=== PATIENT | female | born 1965 | race American Indian/Alaskan Native ===

== ENCOUNTER 2018-01-04 15:20 | Inpatient (IN) | payer OTHER ==
[2018-01-04 15:24] VITALS: BMI 28.8
--- NOTE | 2018-01-04 16:39 | CP.PCM.HP ---
History of Present Illness - History of Present Illness History of Present Illness: This is a 52 year old female with pmh of Type 2 diabetes mellitus for 7 years with history of diabetic neuropathy, history of TIAs, Cushing palsy, who initially presented to [facility] with the complaint of dizziness/ presyncope spells for the week prior to admission there. During her admission she was found to have chronic inflammatory demyelinating neuropathy, Faria- Johnston variant. She recieved IVIG infusions during her stay. In addition to this , she was noted to have decreased Hg of 9.8 and was worked up by Dr. Logan from GI. She had negative EGD with no bleed found. She is now being admitted to [facility] for further rehabilitation. Patient denies chest pain, shortness of breath, fevers, chills, diarrhea. All of the patient's and/or family's questions were answered at the bedside. PMD: Dr. Acuna Neurologist: Dr. Malcom Logan- [employer] Surrogate decision maker: Lamont Pina, spouse, Present on Admission - Present on Admission Any Indicators Present on Admission: Yes History of DVT/PE: No History of Uncontrolled Diabetes: Yes Review of Systems - Review of Systems Review of Systems: A 12 point review of systems was conducted and found to be negative other than what was mentioned in HPI. Past Patient History - Infectious Disease Hx of Infectious Diseases: None - Past Medical History & Family History Past Medical History?: Yes Past Family History: Reviewed and not pertinent - Past Social History Smoking Status: Never Smoked Alcohol: None Drugs: Denies - CARDIAC Hx Cardiac Disorders: Yes - PULMONARY Hx Respiratory Disorders: No - NEUROLOGICAL Hx Neurological Disorder: Yes Hx Dizziness: Yes Hx Vertigo: Yes Other/Comment: BELLS PALSY, WAS TOLD TO HAVE [place] OCTOBER OF LAST YEAR AFTER MRI WAS DONE BY DR DOVER - [place] Hx HEENT Problems: Yes Other/Comment: BLURRED VISION,WEAR READING GLASSES - RENAL Hx Chronic Kidney Disease: Yes Hx Kidney Stones: Yes - ENDOCRINE/METABOLIC Hx Diabetes Mellitus Type 2: Yes (ON INSULIN) - HEMATOLOGICAL/ONCOLOGICAL Hx Blood Disorders: No - INTEGUMENTARY Hx Dermatological Problems: No - MUSCULOSKELETAL/RHEUMATOLOGICAL Hx Falls: No - GASTROINTESTINAL Hx Gastrointestinal Disorders: Yes Hx Constipation: Yes - GENITOURINARY/GYNECOLOGICAL Hx Genitourinary Disorders: No - PSYCHIATRIC Hx Substance Use: No - SURGICAL HISTORY Hx Surgeries: Yes (Tubal ligation.) Hx Tubal Ligation: Yes - ANESTHESIA Hx Anesthesia: Yes Hx Anesthesia Reactions: No Meds Allergies/Adverse Reactions: Allergies Allergy/AdvReac Type Severity Reaction Status Date / Time No Known Allergies Allergy Verified 01/04/18 15:24 Physical Exam - Additional Findings Additional findings: Physical exam: Constitutional- cooperative, awake, alert Head- NCAT, PERRL Eye- PERRL, EOMI ENT- normal exam, MMM. Neck- normal inspection, supple, no JVD Respiratory- CTAB, no wheezes rales rhonchi Cardiovascular- RRR, +S1, +S2 no MRG GI/Abdominal- normal bowel sounds, soft, no mass, no hsm Skin- warm, dry Extremities Exam- Limited ROM right upper extremity. normal capillary refill, normal inspection Neurological Exam- alert, awake, oriented Psych- normal mood, normal affect Assessment & Plan - Assessment and Plan (Free Text) Plan: This is a 52 year old female with pmh of Type 2 diabetes mellitus for 7 years with history of diabetic neuropathy, history of TIAs, Cushing palsy, who initially presented to [facility] with the complaint of dizziness/ presyncope spells for the week prior to admission there. During her admission she was found to have chronic inflammatory demyelinating neuropathy, Faria- Johnston variant. She recieved IVIG infusions during her stay. In addition to this , she was noted to have decreased Hg of 9.8 and was worked up by Dr. Logan from GI. She had negative EGD with no bleed found. She is now being admitted to [facility] for further rehabilitation. Patient denies chest pain, shortness of breath, fevers, chills, diarrhea. All of the patient's and/or family's questions were answered at the bedside. 1) Chronic Inflammatory Demyelinating neuropathy, Faria-Johnston variant - Admit to acute rehab - PT/OT - Physiatry consultation with Dr. Shannon - Received 5 days of IVIG at [facility]. Plan for more infusions of IVIG to be arranged upon discharge from rehab, will be arranged by Dr. Dover. - Pedro for neuropathic pain 2) Uncontrolled Type 2 DM - Levemir 15 units SC HS - Lispro sliding scale with Accucheks AC+HS - Low carbohydrate diet - May need to titrate up Levemir if still uncontrolled, will continue to monitor - ACEI for renal protection 3) History of TIA - Statin - Plavix 4) Anemia - No evidence of GI bleed after workup/EGD with Dr. Logan - Monitor CBC 5) Right shoulder cuff tear hx - Continue Ultram PRN - Will f/u with her orthopedic surgeon as outpatient - PT 6) DVT prophylaxis - Will hold off on anticoagulation due to anemia - SCDs
[2018-01-04] MEDS ORDERED: Insulin Lispro (humaLOG) 100 Units/ml Inj SC SCH (17:00)
[2018-01-04] MEDS: Insulin Detemir 100 Units/ml Inj SC SCH (22:00)
[2018-01-04] MEDS: Insulin Lispro (humaLOG) 100 Units/ml Inj SC SCH (22:01)
[2018-01-05 06:55] LABS: MEAN CELL VOLUME 79.9 fl (81.0-99.0); MEAN CORPUSCULAR HEMOGLOBIN 25.4 pg (27.0-31.0); MEAN CORPUSCULAR HGB CONC 31.7 g/dL (33.0-37.0); RBC 3.96 Mil/uL (3.80-5.20); RED CELL DISTRIBUTION WIDTH 12.7 % (11.5-14.5); WHITE BLOOD COUNT 3.2 K/uL (4.8-10.8)
[2018-01-05 07:22] LABS: BLOOD UREA NITROGEN 15 mg/dl (7-17); CALCIUM 9.2 mg/dL (8.4-10.2); GFR AFRICAN-AMERICAN > 60; GFR NON-AFRICAN AMERICAN > 60
[2018-01-05] MEDS: Insulin Lispro (humaLOG) 100 Units/ml Inj SC SCH ×4 (07:22→21:57)
[2018-01-05] MEDS ORDERED: Enoxaparin 40 mg Syringe SC SCH (09:00)
--- NOTE | 2018-01-05 17:32 | PCM.OPOC ---
Physiatry Overall Plan of Care - Overall Plan of Care Estimated Length of Stay in Weeks: 2 Rehab Impairment: Mobility, Gait, Balance, Coordination Etiologic Diagnosis: Other (CIDP) Rehab/Medical Prognosis: Good - Anticipated Interventions Physical Therapy:: Yes Occupational Therapy:: Yes Speech Therapy:: No Recreational Therapy:: Yes - Therapy Goals Bed Mobility: Supervision Ambulation: Supervision Functional Positional Changes:: Supervision - Discharge Plan Identification of Barriers to Discharge: Home Situation Discharge Destination: Home
--- NOTE | 2018-01-05 17:34 | CP.PCM.CON ---
History of Present Illness - History of Present Illness History of Present Illness: Dr Shannon PMR consultation on Haleigh Pina, born 1965 who has been admitted to [facility] for acute inpatient rehabilitation following an admission at [facility] with weakness and diagnosed with CIDP and put on Ig IGg. There is improved neurological function and strength. Significant stairs at home. The case is complicated by at least a year of significant vertigo and nausea. She is followed by Dr Dover for this issue as well Review of Systems - Constitutional Constitutional: absent: Anorexia, Chills - EENT Eyes: absent: Blurred Vision, Other Visual Disturbances Ears: absent: Decreased Hearing Nose/Mouth/Throat: absent: Nasal Congestion - Cardiovascular Cardiovascular: absent: Chest Pain - Respiratory Respiratory: absent: Dyspnea - Gastrointestinal Gastrointestinal: absent: Constipation - Musculoskeletal Musculoskeletal: absent: Back Pain - Neurological Neurological: Numbness, Vertigo (long standing issue). absent: Abnormal Hearing , Abnormal Movements - Psychiatric Psychiatric: absent: Anxiety Past Patient History - Infectious Disease Hx of Infectious Diseases: None - Past Medical History & Family History Past Medical History?: Yes Past Family History: Reviewed and not pertinent - Past Social History Smoking Status: Never Smoked Alcohol: None Drugs: Denies Home Situation {Lives}: With Family (at least 16 steps) - CARDIAC Hx Cardiac Disorders: Yes - PULMONARY Hx Respiratory Disorders: No - NEUROLOGICAL Hx Neurological Disorder: Yes Hx Dizziness: Yes Hx Vertigo: Yes Other/Comment: BELLS PALSY, WAS TOLD TO HAVE MIN[place]KE OCTOBER OF LAST YEAR AFTER MRI WAS DONE BY DR DOVER - HEENT Hx HEENT Problems: Yes Other/Comment: BLURRED VISION,WEAR READING GLASSES - RENAL Hx Renal Failure: Yes (CKD) - ENDOCRINE/METABOLIC Hx Diabetes Mellitus Type 2: Yes (ON INSULIN) - HEMATOLOGICAL/ONCOLOGICAL Hx Blood Disorders: No - INTEGUMENTARY Hx Dermatological Problems: No - MUSCULOSKELETAL/RHEUMATOLOGICAL Hx Falls: No - GASTROINTESTINAL Hx Gastrointestinal Disorders: Yes Hx Constipation: Yes - GENITOURINARY/GYNECOLOGICAL Hx Genitourinary Disorders: No - PSYCHIATRIC Hx Substance Use: No - SURGICAL HISTORY Hx Surgeries: Yes (Tubal ligation.) Hx Tubal Ligation: Yes - ANESTHESIA Hx Anesthesia: Yes Hx Anesthesia Reactions: No Meds Allergies/Adverse Reactions: Allergies Allergy/AdvReac Type Severity Reaction Status Date / Time No Known Allergies Allergy Verified 01/04/18 15:24 - Medications Medications: Current Medications Atorvastatin Calcium (Lipitor) 20 mg PO [facility] Last Admin: 01/04/18 22:00 Dose: 20 mg Clopidogrel Bisulfate (Plavix) 75 mg PO DAILY [facility] Last Admin: 01/05/18 08:34 Dose: 75 mg Docusate Sodium (Colace) 100 mg PO BID [facility] Last Admin: 01/05/18 08:33 Dose: 100 mg Famotidine (Pepcid) 40 mg PO DAILY [facility] Last Admin: 01/05/18 08:34 Dose: 40 mg Insulin Detemir (Levemir) 15 units SC [facility] Last Admin: 01/04/18 22:00 Dose: 15 units Insulin Human Lispro (Humalog) 0 units SC [facility] PRN Reason: Protocol Last Admin: 01/05/18 12:27 Dose: 3 units Lisinopril (Zestril) 2.5 mg PO DAILY [facility] Last Admin: 01/05/18 08:34 Dose: 2.5 mg Meclizine HCl (Antivert) 25 mg PO TID PRN PRN Reason: Dizziness Ondansetron HCl (Zofran Odt) 4 mg PO Q8H PRN PRN Reason: Nausea/Vomiting Last Admin: 01/05/18 07:23 Dose: 4 mg Pregabalin (Lyrica) 100 mg PO BID [facility] Last Admin: 01/05/18 08:32 Dose: 100 mg Tramadol HCl (Ultram) 50 mg PO TID PRN PRN Reason: pain 1-7 Last Admin: 01/05/18 01:16 Dose: 50 mg Physical Exam - Constitutional Appears: Well, Non-toxic, No Acute Distress - Head Exam Head Exam: ATRAUMATIC, NORMAL INSPECTION, NORMOCEPHALIC - Eye Exam Eye Exam: EOMI - ENT Exam ENT Exam: Mucous Membranes Moist - Respiratory Exam Respiratory Exam: NORMAL BREATHING PATTERN - Cardiovascular Exam Cardiovascular Exam: REGULAR RHYTHM - GI/Abdominal Exam GI & Abdominal Exam: absent: Distended - Extremities Exam Extremities exam: Positive for: full ROM. Negative for: calf tenderness, pedal edema - Neurological Exam Neurological exam: Alert, CN II-XII Intact, Oriented x3 - Psychiatric Exam Psychiatric exam: Normal Affect, Normal Mood - Skin Skin Exam: Warm Results - Vital Signs Recent Vital Signs: Last Vital Signs Temp 97.9 F 01/05/18 07:50 Pulse 73 01/05/18 17:04 Resp 18 01/05/18 07:50 BP 123/72 01/05/18 10:35 Pulse Ox 98 01/05/18 17:04 - Labs Result Diagrams: 01/05/18 05:14 01/05/18 05:14 Labs: Laboratory Results - last 24 hr 01/04/18 01/04/18 01/05/18 16:14 20:50 05:14 WBC 3.2 L RBC 3.96 Hgb 10.0 L Hct 31.6 L MCV 79.9 L MCH 25.4 L MCHC 31.7 L RDW 12.7 Plt Count 168 Sodium Potassium Chloride Carbon Dioxide Anion Gap BUN Creatinine Est GFR ( Amer) Est GFR (Non-Af Amer) POC Glucose (mg/dL) 291 H 260 H Random Glucose Calcium 01/05/18 05:14 WBC RBC Hgb Hct MCV MCH MCHC RDW Plt Count Sodium 138 Potassium 4.1 Chloride 100 Carbon Dioxide 31 H Anion Gap 11 BUN 15 Creatinine 0.5 L Est GFR ( Amer) > 60 Est GFR (Non-Af Amer) > 60 POC Glucose (mg/dL) Random Glucose 250 H Calcium 9.2 Assessment & Plan - Assessment and Plan (Free Text) Assessment: PT/OT to continue to help increase functional independence Team conference for d/c planning Pain: controlled Vascular: no evidence of DVT GI: No evidence of constipation or diarrhea Patient is an excellent acute rehabilitation candidate and will have focused PT , OT and recreational therapy to help facilitate a safe and appropriate d/c plan impairment code: 03.4
[2018-01-05] MEDS: Insulin Detemir 100 Units/ml Inj SC SCH (21:58)
[2018-01-05 22:13] VITALS: RESP 20
[2018-01-06] MEDS: Insulin Lispro (humaLOG) 100 Units/ml Inj SC SCH ×4 (07:32→22:17)
--- NOTE | 2018-01-06 13:25 | PSY.TMCNF ---
Nursing - Vital Signs Vital Signs (Last 8 hours): Vital Signs 01/06/18 01/06/18 01/06/18 08:17 08:37 13:06 Temperature 97.7 F 97.7 F Pulse Rate 76 76 76 Respiratory 20 20 Rate Blood Pressure 127/74 127/74 127/74 O2 Sat by Pulse 98 Oximetry Pain: 0 - Precautions: Precautions: Fall Prevention - Medications/Other Issues Comment: safety precautions, left message at Dr. Harry's office re: shoulder limitations - Consults Comment: Dr. Shannon - Toileting Toileting: Supervision - Bladder Management Bladder Pattern: Normal Voiding Method: Toilet Bladder Management: Supervision Frequency of Accidents: 0 - Bowel Management Bowel Pattern: Normal Bowel Management: Supervision Frequency of Accidents: 0 - Transfers Transfers: Supervision - ADL's ADL's: Supervision - Pain Management Comments: On lyrica and Ultram PRN - Patient/Family Teaching Comments: Safety and fall prevention - Goals/Time Frame Comments: PER MULTIDISCIPLINARY CARE PLAN GOALS - Provider Provider: DEVORAH OSBORNEN RN CRRN Physical Therapy - Bed Mobility Bed Mobility: Supervision, Verbal Cues - Transfers Wheelchair to Mat: Verbal Cues, Contact Guard Sit to Stand: Verbal Cues, Contact Guard Comment: RW - Ambulation Level of Assistance: Verbal Cues, Contact Guard, Minimal Assistance Distance (ft.): 25 Assistive Devices: Rolling Walker Orthoses: n/a Comment: 25 feet with RW with min A. -utilized slightly elevated walker to reduce leaning on walker with R shoulder and to better use device for balance. -impaired coordination with ataxic pattern noted in BLE; note some foot drag. - patient reports that she doesnt feel weak; that when walking it feels difficult for her feet to land/complete tasks as she is requesting of them to do - Stair Negotiation Stairs: Level of Assistance: Not Tested Comment: to be assessed - Standing Balance Static Stand: Contact Guard Assist Dynamic Stand: Minimal Assistance - Pain Pain (assessed during therapy session): 0 Comment: pt denies pain; patient is primarily limited by reports of dizziness/ nausea - Insight/Carryover Insight/Carryover: Good - Patient/Family Education Comment: -safety, therapy schedule, therapy goals, orientation to unit, use of call saab, DME - Assessment/Plan Assessment: Ms. Pina is a 52 year old female admitted to [facility] on 2' to inflammatory demyelinating neuropathy (Faria-Johnston variant). Patient requires low complexity problem solving and condition is stable. Patient requires CG/min A with cueing for coordination and safety during all tasks. Patient has impaired coordination, decreased safety, reports of feeling dizzy/nauseated, and decreased tolerance to activity. Patient will benefit from skilled therapies to maximize safety and independence with all mobility. PT recommend skilled therapy to address above listed impairments with emphasis on reduced ataxia, improved confidence and improved tolerance to activity 5-6x per week for 2 weeks. PT recommends home discharge with home services, DME to be determined and intermittent supervision. - Goals Timeframe: 7 days Goals: 6 steps with B rails with CG. CS to ambulate 200 feet with RW. CS with transfers with RW. mod I with bed/mat mobility - Provider Therapist: Griselda Bangura PT, DPT License Number: [id number] Occupational Therapy - Arousal/Attention/Orientation Patient Orientation: Person, Place, Time, Appropriate to Age, Appropriate to Situation - ADL/IADL Self Feeding: Set-up Help Grooming: Supervision, Verbal Cues, Set-up Help Dressing-Upper Extremity: Supervision, Verbal Cues, Set-up Help Dressing-Lower Extremity: Verbal Cues, Set-up Help, Contact Guard, Minimal Assistance Comment: Homemaking: TBA - Sitting Balance Static Sitting: Supervision Dynamic Sitting: Contact Guard Assist Comment: seated, unsupported at edg eof bed - Transfers Wheelchair to Bed Transfers: Set-up Help, Contact Guard, Minimal Assistance Toilet Transfers: Set-up Help, Contact Guard, Minimal Assistance Comment: shower: TBA - Upper Extremity Status Right Upper Extremity Comment: A/PROM WFLS excet for R shoulder from full rotator tear/pain Left Upper Extremity Comment: A/PROM WNLS - Pain Pain (assessed during therapy session): 0 Comment: pt denies pain; patient is primarily limited by reports of dizziness/ nausea - Insight/Carryover Insight/Carryover: Good - Patient/Family Education Comment: -safety, therapy schedule, therapy goals, orientation to unit, use of call saab, DME - Assessment/Plan Assessment: Ms. Pina is a 52 year old female admitted to [facility] acute rehab on 2' to inflammatory demyelinating neuropathy (Faria-Johnston variant). Patient requires low complexity problem solving and condition is stable. Patient requires CG/min A with cueing for coordination and safety during all tasks. Patient has impaired coordination, decreased safety, reports of feeling dizzy/nauseated, and decreased tolerance to activity. Patient will benefit from skilled therapies to maximize safety and independence with all mobility. PT recommend skilled therapy to address above listed impairments with emphasis on reduced ataxia, improved confidence and improved tolerance to activity 5-6x per week for 2 weeks. PT recommends home discharge with home services, DME to be determined and intermittent supervision. - Goals Timeframe: 7 days Goals: 6 steps with B rails with CG. CS to ambulate 200 feet with RW. CS with transfers with RW. mod I with bed/mat mobility - Provider Therapist: Wendy Soto OTR/L License Number: [id number] Speech Therapy - Plan Assessment: Ms. Pina is a 52 year old female admitted to [facility] acute rehab on 2' to inflammatory demyelinating neuropathy (Faria-Johnston variant). Patient requires low complexity problem solving and condition is stable. Patient requires CG/min A with cueing for coordination and safety during all tasks. Patient has impaired coordination, decreased safety, reports of feeling dizzy/nauseated, and decreased tolerance to activity. Patient will benefit from skilled therapies to maximize safety and independence with all mobility. PT recommend skilled therapy to address above listed impairments with emphasis on reduced ataxia, improved confidence and improved tolerance to activity 5-6x per week for 2 weeks. PT recommends home discharge with home services, DME to be determined and intermittent supervision. Recreational Therapy - Assessment Assessment/Plan: Ms. Pina is a 52 year old female admitted to [facility] acute rehab on 01/04/18 2' to inflammatory demyelinating neuropathy (Faria-Johnston variant). Patient requires low complexity problem solving and condition is stable. Patient requires CG/min A with cueing for coordination and safety during all tasks. Patient has impaired coordination, decreased safety, reports of feeling dizzy/nauseated, and decreased tolerance to activity. Patient will benefit from skilled therapies to maximize safety and independence with all mobility. PT recommend skilled therapy to address above listed impairments with emphasis on reduced ataxia, improved confidence and improved tolerance to activity 5-6x per week for 2 weeks. PT recommends home discharge with home services, DME to be determined and intermittent supervision. Nutrition - Current Diet Current Diet/ Supplement/ Feedings: Low consistent CHO heart healthy diet - Appetite Percent Meal Consumed: 75-100% - Comments Comments: Safety and fall prevention - Assessment/Goals/Time Frame Assessment/Goals/Time Frame: safety precautions, left message at Dr. Harry's office re: shoulder limitations - Provider Provider: Ambar Krueger RD Rehabilitation Plan - Treatment Plan Treatment Plan: Physical Therapy, Occupational Therapy, Dietary, Patient/Family Education - Discharge Plan Discharge to: Home
--- NOTE | 2018-01-06 14:07 | CP.PCM.PN ---
Subjective - Date & Time of Evaluation Date of Evaluation: 01/06/18 Time of Evaluation: 14:06 - Subjective Subjective: Patient seen and doing ok some nausea and dizziness that is affecting her function She has good strength but is significantly ataxic Objective - Vital Signs/Intake and Output Vital Signs (last 24 hours): Temp Pulse Resp BP Pulse Ox 97.7 F 76 20 127/74 98 01/06/18 13:06 01/06/18 13:06 01/06/18 13:06 01/06/18 13:06 01/06/18 08:37 - Medications Medications: Current Medications Atorvastatin Calcium (Lipitor) [address] [facility] Last Admin: 01/05/18 21:58 Dose: 20 mg Bisacodyl (Dulcolax) 10 mg AL DAILY PRN PRN Reason: Constipation Clopidogrel Bisulfate (Plavix) 75 mg PO DAILY [facility] Last Admin: 01/06/18 08:17 Dose: 75 mg Docusate Sodium (Colace) 100 mg PO BID [facility] Last Admin: 01/06/18 08:19 Dose: 100 mg Famotidine (Pepcid) 40 mg PO DAILY [facility] Last Admin: 01/06/18 08:16 Dose: 40 mg Insulin Detemir (Levemir) [address] [facility] Last Admin: 01/05/18 21:58 Dose: 15 units Insulin Human Lispro (Humalog) 0 units SC [facility] PRN Reason: Protocol Last Admin: 01/06/18 12:20 Dose: 6 units Lisinopril (Zestril) 2.5 mg PO DAILY [facility] Last Admin: 01/06/18 08:17 Dose: 2.5 mg Meclizine HCl (Antivert) 25 mg PO TID PRN PRN Reason: Dizziness Ondansetron HCl (Zofran Odt) 4 mg PO Q8H PRN PRN Reason: Nausea/Vomiting Last Admin: 01/06/18 10:05 Dose: 4 mg Pregabalin (Lyrica) 100 mg PO BID [facility] Last Admin: 01/06/18 08:14 Dose: 100 mg Tramadol HCl (Ultram) 50 mg PO TID PRN PRN Reason: pain 1-7 Last Admin: 01/05/18 01:16 Dose: 50 mg - Labs Labs: 01/05/18 05:14 01/05/18 05:14
[2018-01-06] MEDS: Insulin Detemir 100 Units/ml Inj SC SCH (22:19)
[2018-01-07] MEDS: Insulin Lispro (humaLOG) 100 Units/ml Inj SC SCH ×3 (07:01→17:06)
--- NOTE | 2018-01-07 16:21 | CP.PCM.PN ---
Subjective - Date & Time of Evaluation Date of Evaluation: 01/07/18 Time of Evaluation: 16:30 - Subjective Subjective: Patient seen and examined. Claimed she was feeling much better. [place] nauseous and vomited earlier. Objective - Vital Signs/Intake and Output Vital Signs (last 24 hours): Temp Pulse Resp BP Pulse Ox 98.0 F 66 20 122/67 97 01/07/18 09:07 01/07/18 09:07 01/07/18 09:07 01/07/18 09:07 01/07/18 09:07 - Medications Medications: Current Medications Atorvastatin Calcium (Lipitor) 20 mg PO [facility] Last Admin: 01/06/18 22:19 Dose: 20 mg Bisacodyl (Dulcolax) 10 mg [place] DAILY PRN PRN Reason: Constipation Last Admin: 01/06/18 18:37 Dose: 10 mg Clopidogrel Bisulfate (Plavix) 75 mg PO DAILY [facility] Last Admin: 01/07/18 08:06 Dose: 75 mg Docusate Sodium (Colace) 100 mg PO BID [facility] Last Admin: 01/07/18 08:08 Dose: 100 mg Famotidine (Pepcid) 40 mg PO DAILY [facility] Last Admin: 01/07/18 08:07 Dose: 40 mg Insulin Detemir (Levemir) 15 units SC [facility] Last Admin: 01/06/18 22:19 Dose: 15 units Insulin Human Lispro (Humalog) 0 units SC [facility] PRN Reason: Protocol Last Admin: 01/07/18 12:42 Dose: 4 units Lisinopril (Zestril) 2.5 mg PO DAILY [facility] Last Admin: 01/07/18 08:06 Dose: 2.5 mg Meclizine HCl (Antivert) 25 mg PO TID PRN PRN Reason: Dizziness Last Admin: 01/07/18 08:59 Dose: 25 mg Ondansetron HCl (Zofran Odt) 4 mg PO Q8H PRN PRN Reason: Nausea/Vomiting Last Admin: 01/07/18 08:59 Dose: 4 mg Pregabalin (Lyrica) 100 mg PO BID [facility] Last Admin: 01/07/18 08:05 Dose: 100 mg Tramadol HCl (Ultram) 50 mg PO TID PRN PRN Reason: pain 1-7 Last Admin: 01/07/18 07:52 Dose: 50 mg - Labs Labs: 01/05/18 05:14 01/05/18 05:14 - Constitutional Appears: No Acute Distress - Head Exam Head Exam: ATRAUMATIC - Eye Exam Eye Exam: absent: Scleral icterus - ENT Exam ENT Exam: Mucous Membranes Moist - Neck Exam Neck Exam: absent: Meningismus - Respiratory Exam Respiratory Exam: absent: Rales, Rhonchi, Wheezes, Respiratory Distress - Cardiovascular Exam Cardiovascular Exam: REGULAR RHYTHM, +S1, +S2 - GI/Abdominal Exam GI & Abdominal Exam: Soft. absent: Tenderness - Rectal Exam Rectal Exam: Deferred - Neurological Exam Neurological Exam: Alert, Oriented x3 - Psychiatric Exam Psychiatric exam: Normal Affect - Skin Skin Exam: Dry, Intact Assessment and Plan - Assessment and Plan (Free Text) Assessment: 52 yo female with history of DM2 complicated with diabetic neuropathy and TIA was seen at [facility] on 12/25/17 because of weakness of both legs. She was admitted and diagnosed with Chronic Inflammatory Demyelinating Disease, Faria-Johnston variant. She received immunoglobulin infusion for 5 days but did not have much improvement accdg to the patient. She was transferred to [facility] and admitted in TCU for further therapy. 1. Chronic Inflammatory Demyelinating Neuropathy continue PT/OT will need further infusion of IVIG upon discharged continue Lyrica for pain management 2. DM2 BS uncontrolled Lispro 3 units SC ACTID Levemir 15 units SC HS HgA1C, BMP in am 3. History of TIA continue Lipitor and Plavix 4. Right Rotator Cuff Tear to follow with ortho sa outpatient
[2018-01-07] MEDS: Insulin Detemir 100 Units/ml Inj SC SCH (21:49)
[2018-01-08] MEDS ORDERED: Insulin Lispro (humaLOG) 100 Units/ml Inj SC SCH (07:30)
[2018-01-08] MEDS: Insulin Lispro (humaLOG) 100 Units/ml Inj SC SCH ×2 (12:25→17:07)
[2018-01-08] MEDS: Insulin Detemir 100 Units/ml Inj SC SCH (21:56)
[2018-01-09] MEDS: Insulin Lispro (humaLOG) 100 Units/ml Inj SC SCH ×5 (07:04→21:17)
[2018-01-09 08:21] LABS: HEMOGLOBIN 10.6 g/dL (12.0-16.0); MEAN CELL VOLUME 78.2 fl (81.0-99.0); MEAN CORPUSCULAR HEMOGLOBIN 25.7 pg (27.0-31.0); MEAN CORPUSCULAR HGB CONC 32.8 g/dL (33.0-37.0); RBC 4.13 Mil/uL (3.80-5.20); RED CELL DISTRIBUTION WIDTH 12.3 % (11.5-14.5)
[2018-01-09 08:58] LABS: BLOOD UREA NITROGEN 17 mg/dl (7-17); CALCIUM 9.2 mg/dL (8.4-10.2); GFR AFRICAN-AMERICAN > 60; GFR NON-AFRICAN AMERICAN > 60
--- NOTE | 2018-01-09 12:21 | CP.PCM.PN ---
Subjective - Date & Time of Evaluation Date of Evaluation: 01/09/18 Time of Evaluation: 12:21 - Subjective Subjective: pt stable no complaints tolerating pt well hd stable nad Objective - Vital Signs/Intake and Output Vital Signs (last 24 hours): Temp Pulse Resp BP Pulse Ox 97.9 F 73 20 128/79 100 01/09/18 07:38 01/09/18 08:36 01/09/18 07:38 01/09/18 08:36 01/09/18 07:38 Intake and Output: Vitals Reviewed GEN: alert, cooperative HEENT: NCAT, PERRL, EOMI HEART: RRR, +S1S2, NO MRG LUNG: CTAB, NO WRR ABD: soft, NT, ND, No HSM, No masses EXT: normal pedal pulses, normal capillary refill NEURO: awake, alert SKIN: warm, dry PSYCH: normal mood, normal affect - Medications Medications: Current Medications Atorvastatin Calcium (Lipitor) 20 mg PO HS [facility] Last Admin: 01/08/18 21:55 Dose: 20 mg Bisacodyl (Dulcolax) 10 mg [place] DAILY PRN PRN Reason: Constipation Last Admin: 01/08/18 19:52 Dose: 10 mg Clopidogrel Bisulfate (Plavix) 75 mg PO DAILY [facility] Last Admin: 01/09/18 08:36 Dose: 75 mg Docusate Sodium (Colace) 100 mg PO BID [facility] Last Admin: 01/09/18 08:35 Dose: 100 mg Famotidine (Pepcid) 40 mg PO DAILY [facility] Last Admin: 01/09/18 08:36 Dose: 40 mg Insulin Detemir (Levemir) 15 units SC HS [facility] Last Admin: 01/08/18 21:56 Dose: 15 units Insulin Human Lispro (Humalog) 3 units SC ACTID [facility] Last Admin: 01/09/18 07:04 Dose: 3 units Lisinopril (Zestril) 2.5 mg PO DAILY [facility] Last Admin: 01/09/18 08:36 Dose: 2.5 mg Meclizine HCl (Antivert) 25 mg PO TID PRN PRN Reason: Dizziness Last Admin: 01/07/18 08:59 Dose: 25 mg Ondansetron HCl (Zofran Odt) 4 mg PO Q8H PRN PRN Reason: Nausea/Vomiting Last Admin: 01/07/18 08:59 Dose: 4 mg Pregabalin (Lyrica) 100 mg PO BID [facility] Last Admin: 01/09/18 08:35 Dose: 100 mg Tramadol HCl (Ultram) 50 mg PO TID PRN PRN Reason: pain 1-7 Last Admin: 01/08/18 21:55 Dose: 50 mg - Labs Labs: 01/09/18 07:59 01/09/18 07:59 Assessment and Plan - Assessment and Plan (Free Text) Plan: 52 yo female with history of DM2 complicated with diabetic neuropathy and TIA was seen at [facility] on 12/25/17 because of weakness of both legs. She was admitted and diagnosed with Chronic Inflammatory Demyelinating Disease, Faria-Johnston variant. She received immunoglobulin infusion for 5 days but did not have much improvement accdg to the patient. She was transferred to [facility] and admitted in TCU for further therapy. 1. Chronic Inflammatory Demyelinating Neuropathy continue PT/OT will need further infusion of IVIG upon discharged continue Lyrica for pain management 2. DM2 BS uncontrolled Lispro 3 units SC ACTID Levemir 15 units SC HS HgA1C, BMP in am 3. History of TIA continue Lipitor and Plavix 4. Right Rotator Cuff Tear to follow with ortho sa outpatient
--- NOTE | 2018-01-09 12:37 | CP.PCM.CON ---
History of Present Illness - History of Present Illness History of Present Illness: Pt is a 52 year old female admitted to [facility] and referred to the designer writer for evaluation. See medical record for complete medical history and medication list. Social History: pt lives with her father in [place] and daughter. Her younger brother and son live in the [facility]. Pt is . She was 2x. Ed/Voc: pt was raised in the [place], attended community college. Worked in the [employer] industry prior to an increase in her medical problems. Disability was denied and patient is reapplying. Psych: pt reported counseling though stopped due to financial worries. Pt's financial issues are a major stressor at this time. Pt negative for a history of alc/sub abuse. ON interview, pt focused on financial stressors and medical issues. She spoke of desire for increased help from others, expectations reviewed. MSE: pt alert, oriented x3, relevant/coherent, no psychosis, affect constricted , mood dysphoric, interventions presented to reduce distress, no si no hi ideation. Dx: R/o depression Plan: Continued Sup therapy Past Patient History - Infectious Disease Hx of Infectious Diseases: None - Past Medical History & Family History Past Medical History?: Yes Past Family History: Reviewed and not pertinent - Past Social History Smoking Status: Never Smoked Alcohol: None Drugs: Denies Home Situation {Lives}: With Family (at least 16 steps) - CARDIAC Hx Cardiac Disorders: Yes - PULMONARY Hx Respiratory Disorders: No - NEUROLOGICAL Hx Neurological Disorder: Yes Hx Dizziness: Yes Hx Vertigo: Yes Other/Comment: [place] PALSY, WAS TOLD TO HAVE [place] OCTOBER OF LAST YEAR AFTER MRI WAS DONE BY DR JAZZMINE CRUZ Hx HEENT Problems: Yes Other/Comment: BLURRED VISION,WEAR READING GLASSES - RENAL Hx Renal Failure: Yes (CKD) - ENDOCRINE/METABOLIC Hx Diabetes Mellitus Type 2: Yes (ON INSULIN) - HEMATOLOGICAL/ONCOLOGICAL Hx Blood Disorders: No - INTEGUMENTARY Hx Dermatological Problems: No - MUSCULOSKELETAL/RHEUMATOLOGICAL Hx Falls: No - GASTROINTESTINAL Hx Gastrointestinal Disorders: Yes Hx Constipation: Yes - GENITOURINARY/GYNECOLOGICAL Hx Genitourinary Disorders: No - PSYCHIATRIC Hx Substance Use: No - SURGICAL HISTORY Hx Surgeries: Yes (Tubal ligation.) Hx Tubal Ligation: Yes - ANESTHESIA Hx Anesthesia: Yes Hx Anesthesia Reactions: No Meds Allergies/Adverse Reactions: Allergies Allergy/AdvReac Type Severity Reaction Status Date / Time No Known Allergies Allergy Verified 01/04/18 15:24 - Medications Medications: Current Medications Atorvastatin Calcium (Lipitor) 20 mg PO HS [facility] Last Admin: 01/08/18 21:55 Dose: 20 mg Bisacodyl (Dulcolax) 10 mg [place] DAILY PRN PRN Reason: Constipation Last Admin: 01/08/18 19:52 Dose: 10 mg Clopidogrel Bisulfate (Plavix) 75 mg PO DAILY [facility] Last Admin: 01/09/18 08:36 Dose: 75 mg Docusate Sodium (Colace) 100 mg PO BID [facility] Last Admin: 01/09/18 08:35 Dose: 100 mg Famotidine (Pepcid) 40 mg PO DAILY [facility] Last Admin: 01/09/18 08:36 Dose: 40 mg Insulin Detemir (Levemir) 15 units SC [facility] Last Admin: 01/08/18 21:56 Dose: 15 units Insulin Human Lispro (Humalog) 3 [facility] Last Admin: 01/09/18 12:22 Dose: 3 units Lisinopril (Zestril) 2.5 mg PO DAILY [facility] Last Admin: 01/09/18 08:36 Dose: 2.5 mg Meclizine HCl (Antivert) 25 mg PO TID PRN PRN Reason: Dizziness Last Admin: 01/07/18 08:59 Dose: 25 mg Ondansetron HCl (Zofran Odt) 4 mg PO Q8H PRN PRN Reason: Nausea/Vomiting Last Admin: 01/07/18 08:59 Dose: 4 mg Pregabalin (Lyrica) 100 mg PO BID [facility] Last Admin: 01/09/18 08:35 Dose: 100 mg Tramadol HCl (Ultram) 50 mg PO TID PRN PRN Reason: pain 1-7 Last Admin: 01/08/18 21:55 Dose: 50 mg Results - Vital Signs Recent Vital Signs: Last Vital Signs Temp 97.9 F 01/09/18 07:38 Pulse 73 01/09/18 08:36 Resp 20 01/09/18 07:38 BP 128/79 01/09/18 08:36 Pulse Ox 100 01/09/18 07:38 - Labs Result Diagrams: 01/09/18 07:59 01/09/18 07:59 Labs: Laboratory Results - last 24 hr 01/08/18 01/08/18 01/09/18 16:20 20:56 05:58 WBC RBC Hgb Hct MCV MCH MCHC RDW Plt Count Sodium Potassium Chloride Carbon Dioxide Anion Gap BUN Creatinine Est GFR ( Amer) Est GFR (Non-Af Amer) POC Glucose (mg/dL) 211 H 267 H 207 H Random Glucose Calcium 01/09/18 01/09/18 01/09/18 07:59 07:59 11:11 WBC 4.0 L RBC 4.13 Hgb 10.6 L Hct 32.3 L MCV 78.2 L MCH 25.7 L MCHC 32.8 L RDW 12.3 Plt Count 187 Sodium 140 Potassium 4.1 Chloride 100 Carbon Dioxide 30 Anion Gap 14 BUN 17 Creatinine 0.5 L Est GFR ( Amer) > 60 Est GFR (Non-Af Amer) > 60 POC Glucose (mg/dL) 238 H Random Glucose 201 H Calcium 9.2
--- NOTE | 2018-01-09 17:09 | CP.PCM.PN ---
Subjective - Date & Time of Evaluation Date of Evaluation: 01/09/18 Time of Evaluation: 17:08 - Subjective Subjective: Patient doing ok ambulating 100' still with balance issues no LOUISE or CP motivated continue current care Objective - Vital Signs/Intake and Output Vital Signs (last 24 hours): Temp Pulse Resp BP Pulse Ox 97.9 F 73 20 128/79 100 01/09/18 07:38 01/09/18 08:36 01/09/18 07:38 01/09/18 08:36 01/09/18 07:38 - Medications Medications: Current Medications Atorvastatin Calcium (Lipitor) 20 mg PO HS [facility] Last Admin: 01/08/18 21:55 Dose: 20 mg Bisacodyl (Dulcolax) 10 mg [place] DAILY PRN PRN Reason: Constipation Last Admin: 01/08/18 19:52 Dose: 10 mg Clopidogrel Bisulfate (Plavix) 75 mg PO DAILY [facility] Last Admin: 01/09/18 08:36 Dose: 75 mg Docusate Sodium (Colace) 100 mg PO BID [facility] Last Admin: 01/09/18 08:35 Dose: 100 mg Famotidine (Pepcid) 40 mg PO DAILY [facility] Last Admin: 01/09/18 08:36 Dose: 40 mg Insulin Detemir (Levemir) 15 units SC HS [facility] Last Admin: 01/08/18 21:56 Dose: 15 units Insulin Human Lispro (Humalog) 3 units SC ACTID [facility] Last Admin: 01/09/18 12:22 Dose: 3 units Insulin Human Lispro (Humalog) 0 units SC [facility] PRN Reason: Protocol Lisinopril (Zestril) 2.5 mg PO DAILY [facility] Last Admin: 01/09/18 08:36 Dose: 2.5 mg Meclizine HCl (Antivert) 25 mg PO TID PRN PRN Reason: Dizziness Last Admin: 01/07/18 08:59 Dose: 25 mg Ondansetron HCl (Zofran Odt) 4 mg PO Q8H PRN PRN Reason: Nausea/Vomiting Last Admin: 01/07/18 08:59 Dose: 4 mg Pregabalin (Lyrica) 100 mg PO BID [facility] Last Admin: 01/09/18 08:35 Dose: 100 mg Tramadol HCl (Ultram) 50 mg PO TID PRN PRN Reason: pain 1-7 Last Admin: 01/08/18 21:55 Dose: 50 mg - Labs Labs: 01/09/18 07:59 01/09/18 07:59
[2018-01-09] MEDS: Insulin Detemir 100 Units/ml Inj SC SCH (21:17)
[2018-01-10] MEDS: Insulin Lispro (humaLOG) 100 Units/ml Inj SC SCH ×4 (07:32→21:27)
[2018-01-10] MEDS: Insulin Detemir 100 Units/ml Inj SC SCH (21:26)
[2018-01-11] MEDS: Insulin Lispro (humaLOG) 100 Units/ml Inj SC SCH ×4 (07:13→21:45)
[2018-01-11] MEDS: Insulin Detemir 100 Units/ml Inj SC SCH (21:46)
[2018-01-12] MEDS: Insulin Lispro (humaLOG) 100 Units/ml Inj SC SCH ×4 (07:59→21:48)
--- NOTE | 2018-01-12 17:23 | CP.PCM.PN ---
Subjective - Date & Time of Evaluation Date of Evaluation: 01/12/18 Time of Evaluation: 10:00 - Subjective Subjective: Patient seen and examined at bedside. No new complaints. NAD, HD stable. Continuing to tolerate pt/ot well. All questions answered. Objective - Vital Signs/Intake and Output Vital Signs (last 24 hours): Temp Pulse Resp BP Pulse Ox 97.9 F 83 20 127/77 98 01/12/18 07:43 01/12/18 10:22 01/12/18 07:43 01/12/18 08:35 01/12/18 07:43 - Medications Medications: Current Medications Atorvastatin Calcium (Lipitor) 20 mg PO HS [facility] Last Admin: 01/11/18 21:39 Dose: 20 mg Bisacodyl (Dulcolax) 10 mg [place] DAILY PRN PRN Reason: Constipation Last Admin: 01/10/18 21:27 Dose: 10 mg Clopidogrel Bisulfate (Plavix) 75 mg PO DAILY [facility] Last Admin: 01/12/18 08:35 Dose: 75 mg Docusate Sodium (Colace) 100 mg PO BID [facility] Last Admin: 01/12/18 17:04 Dose: 100 mg Famotidine (Pepcid) 40 mg PO DAILY [facility] Last Admin: 01/12/18 08:35 Dose: 40 mg Insulin Detemir (Levemir) 13 units SC Q12 [facility] Insulin Human Lispro (Humalog) 0 units SC [facility] PRN Reason: Protocol Last Admin: 01/12/18 17:02 Dose: 6 units Lisinopril (Zestril) 2.5 mg PO DAILY [facility] Last Admin: 01/12/18 08:35 Dose: 2.5 mg Meclizine HCl (Antivert) 25 mg PO TID PRN PRN Reason: Dizziness Last Admin: 01/07/18 08:59 Dose: 25 mg Ondansetron HCl (Zofran Odt) 4 mg PO Q8H PRN PRN Reason: Nausea/Vomiting Last Admin: 01/07/18 08:59 Dose: 4 mg Pregabalin (Lyrica) 100 mg PO BID [facility] Last Admin: 01/12/18 17:01 Dose: 100 mg Tramadol HCl (Ultram) 50 mg PO TID PRN PRN Reason: pain 1-10 - Labs Labs: 01/09/18 07:59 01/09/18 07:59 - Additional Findings Additional findings: Physical exam: Constitutional- cooperative, awake, alert Head- NCAT, PERRL Eye- PERRL, EOMI ENT- normal exam, MMM. Neck- normal inspection, supple, no JVD Respiratory- CTAB, no wheezes rales rhonchi Cardiovascular- RRR, +S1, +S2 no MRG GI/Abdominal- normal bowel sounds, soft, no mass, no hsm Skin- warm, dry Extremities Exam- normal capillary refill, normal inspection Neurological Exam- alert, awake, oriented Psych- normal mood, normal affect Assessment and Plan - Assessment and Plan (Free Text) Plan: This is a 52 year old female with pmh of Type 2 diabetes mellitus for 7 years with history of diabetic neuropathy, history of TIAs, [place] palsy, who initially presented to [facility] with the complaint of dizziness/ presyncope spells for the week prior to admission there. During her admission she was found to have chronic inflammatory demyelinating neuropathy, Faria- Johnston variant. She recieved IVIG infusions during her stay. In addition to this , she was noted to have decreased Hg of 9.8 and was worked up by Dr. Logan from GI. She had negative EGD with no bleed found. She is now being admitted to [facility] for further rehabilitation. Patient denies chest pain, shortness of breath, fevers, chills, diarrhea. All of the patient's and/or family's questions were answered at the bedside. 1) Chronic Inflammatory Demyelinating neuropathy, Faria-Johnston variant - Admit to acute rehab - PT/OT - Physiatry consultation with Dr. Shannon - Received 5 days of IVIG at [facility]. Plan for more infusions of IVIG to be arranged upon discharge from rehab, will be arranged by Dr. العراقي. - Pedro for neuropathic pain 2) Uncontrolled Type 2 DM - Levemir 15 units SC HS - Lispro sliding scale with Accucheks AC+HS - Low carbohydrate diet - Levemir 15 units SC HS - Lisinopril 2.5 mg po daily 3) History of TIA - Statin - Plavix 4) Anemia - No evidence of GI bleed after workup/EGD with Dr. Logan - Monitor CBC 5) Right shoulder cuff tear hx - Continue Ultram PRN - Will f/u with her orthopedic surgeon as outpatient - PT 6) DVT prophylaxis - Will hold off on anticoagulation due to anemia - SCDs
[2018-01-12] MEDS: Insulin Detemir 100 Units/ml Inj SC SCH (21:40)
[2018-01-13] MEDS: Insulin Detemir 100 Units/ml Inj SC SCH ×2 (08:09→22:20)
[2018-01-13] MEDS: Insulin Lispro (humaLOG) 100 Units/ml Inj SC SCH ×4 (08:10→22:21)
--- NOTE | 2018-01-13 10:21 | CP.PCM.PN ---
Subjective - Date & Time of Evaluation Date of Evaluation: 01/10/18 Time of Evaluation: 13:00 - Subjective Subjective: no acute specific complaints at present Objective - Vital Signs/Intake and Output Vital Signs (last 24 hours): Temp Pulse Resp BP Pulse Ox 97.6 F 91 H 20 127/75 100 01/13/18 08:50 01/13/18 08:50 01/13/18 08:50 01/13/18 08:50 01/13/18 08:50 - Medications Medications: Current Medications Atorvastatin Calcium (Lipitor) 20 mg PO [facility] Last Admin: 01/12/18 21:34 Dose: 20 mg Bisacodyl (Dulcolax) 10 mg [place] DAILY PRN PRN Reason: Constipation Last Admin: 01/10/18 21:27 Dose: 10 mg Clopidogrel Bisulfate (Plavix) 75 mg PO DAILY [facility] Last Admin: 01/13/18 08:12 Dose: 75 mg Docusate Sodium (Colace) 100 mg PO BID [facility] Last Admin: 01/13/18 08:10 Dose: 100 mg Famotidine (Pepcid) 40 mg PO DAILY [facility] Last Admin: 01/13/18 08:12 Dose: 40 mg Insulin Detemir (Levemir) 13 units SC Q12 [facility] Last Admin: 01/13/18 08:09 Dose: 13 units Insulin Human Lispro (Humalog) 0 units SC ACHS [facility] PRN Reason: Protocol Last Admin: 01/13/18 08:10 Dose: 4 units Lisinopril (Zestril) 2.5 mg PO DAILY [facility] Last Admin: 01/13/18 08:12 Dose: 2.5 mg Meclizine HCl (Antivert) 25 mg PO TID PRN PRN Reason: Dizziness Last Admin: 01/07/18 08:59 Dose: 25 mg Ondansetron HCl (Zofran Odt) 4 mg PO Q8H PRN PRN Reason: Nausea/Vomiting Last Admin: 01/07/18 08:59 Dose: 4 mg Pregabalin (Lyrica) 100 mg PO BID [facility] Last Admin: 01/13/18 08:09 Dose: 100 mg Tramadol HCl (Ultram) 50 mg PO TID PRN PRN Reason: pain 1-10 - Labs Labs: 01/09/18 07:59 08/10/18 07:59 - Head Exam Head Exam: ATRAUMATIC, NORMAL INSPECTION, NORMOCEPHALIC - Eye Exam Eye Exam: EOMI, Normal appearance Pupil Exam: NORMAL ACCOMODATION, PERRL - ENT Exam ENT Exam: Mucous Membranes Moist, Normal Exam - Neck Exam Neck Exam: Full ROM, Normal Inspection - Respiratory Exam Respiratory Exam: Clear to Ausculation Bilateral, NORMAL BREATHING PATTERN - Cardiovascular Exam Cardiovascular Exam: REGULAR RHYTHM - GI/Abdominal Exam GI & Abdominal Exam: Normal Bowel Sounds - Rectal Exam Rectal Exam: NORMAL INSPECTION - Exam External exam: NORMAL EXTERNAL EXAM - Extremities Exam Extremities Exam: Full ROM, Normal Capillary Refill, Normal Inspection - Back Exam Back Exam: NORMAL INSPECTION - Neurological Exam Neurological Exam: Alert, Awake Additional comments: no calf tenderness - Psychiatric Exam Psychiatric exam: Normal Affect, Normal Mood - Skin Skin Exam: Dry, Normal Color Assessment and Plan (1) Ataxia Assessment & Plan: neuropathy plan for physical, occupational, rec therapy covering for Dr Shannon, follow up of blood sugar Status: Acute (2) Bronchitis Status: Acute (3) CVA (cerebral vascular accident) Status: Acute (4) Dizziness Status: Acute (5) Hyperglycemia Status: Acute (6) Lumbar radiculopathy Status: Acute
--- NOTE | 2018-01-13 13:12 | PSY.TMCNF ---
Nursing - Vital Signs Vital Signs (Last 8 hours): Vital Signs 01/13/18 01/13/18 08:12 08:50 Temperature 97.6 F Pulse Rate 78 91 H Respiratory 20 Rate Blood Pressure 127/75 127/75 O2 Sat by Pulse 100 Oximetry Pain: 0 - Precautions: Precautions: Fall Prevention - Medications/Other Issues Comment: Pt at high nutritional risk. Goals: 1. Blood glucose will be between 70-180 mg/dL(not met, continue). 2. Pt to consume 75-100% of meals. Follow-up due on 01/17/2018 - Consults Comment: Dr. Shannon - Toileting Toileting: Contact Guard - Bladder Management Bladder Pattern: Normal Voiding Method: Toilet Bladder Management: Contact Guard - Bowel Management Bowel Pattern: Normal Bowel Management: Contact Guard - Transfers Transfers: Contact Guard - ADL's ADL's: Contact Guard - Pain Management Comments: On lyrica and Ultram PRN - Patient/Family Teaching Comments: Safety and fall prevention - Goals/Time Frame Comments: Pt was seen awake and alert laying in her bed. Pt was agreeable to visit by physician underwriter. Pt speech and tone was flat, stating she was dizzy and tired from therapy throughout day. Pt was able to identify various lesiure interests, including: word games, eating, watching movies and going to [place]inez/picnics. Pt presents with weakness in both legs and requires assistance walking. Pt was engaged in discussion about unit and recreation therapy. Pt verbalized understanding. Pt remained in room playing on iPad. - Provider Provider: DEVORAH OSBORNEN RN CRRN Physical Therapy - Bed Mobility Bed Mobility: Supervision, Verbal Cues - Transfers Wheelchair to Mat: Supervision, Verbal Cues Sit to Stand: Supervision, Verbal Cues Comment: RW/SPC - Ambulation Level of Assistance: Supervision, Verbal Cues, Contact Guard Distance (ft.): 100 Assistive Devices: Single point cane, Rolling Walker Orthoses: n/a Comment: -level surface with RW. -level surface with SPC (LUE). -level surface , improving ataxia but has intermittent periods of smooth good quality gait. - VCs for good foot clearance and to cue coordination of flexion pattern during swing. -uses wide radius for turns. -trialed use of SPC in LUE as patient has R shoulder injury (patient previously used in RUE); increased ataxia and poor balance noted with use of SPC but patient able to self-correct balance. -- encouraged patient to reduce over-thinking with use of cane and to try to ambulate naturally and use cane as needed - Stair Negotiation Stairs: Level of Assistance: Supervision, Verbal Cues Stairs: Assistive Devices: Left Handrail, Right Handrail, Single point cane Comment: -1 flight 8 inch steps with R rail and SPC on L on ascent and BUE on L rail on descent --> step to pattern with S; patient reports she prefers BUE on R rail due to weakness in R rail and descent with rotation towards left due to knees; educated patient that this is a safe technique to utilize and she can utilize BUE on single rail and rotation as needed if it improves her safety & more importantly her confidence. -discussed techniques for carrying of items up /down steps including use of back packs and small light loads with placement of them on elbows to enable her to utilize hands on rails - Standing Balance Static Stand: Supervision Dynamic Stand: Contact Guard Assist, Minimal Assistance - Pain Pain (assessed during therapy session): 2 Management Techniques: Position Change, Relaxation Techniques, Exercise, Inactivity - Insight/Carryover Insight/Carryover: Good - Patient/Family Education Comment: -rehab/OT goals, plan of care. -energy conservation/work simplification for adls, transfers/mobility. -safety strategies, use of call saab. -RUE laptray to incresae R shoulder comfort. -eductaed on uses/ applications of commode, shower chair--further training needed - Assessment/Plan Assessment: Pt was oriented to benefits and purpose of participating in recreation therapy sessions throughout stay on unit. Pt presents with anxiety and decrease activity tolerance level. Pt will benefit from participating in recreation therapy sessions to improve arousal level, activity tolerance level, and attention to task. - Goals Timeframe: 1 week - Provider License Number: [id number] Occupational Therapy - Arousal/Attention/Orientation Patient Orientation: Person, Place, Time, Appropriate to Age, Appropriate to Situation - ADL/IADL Self Feeding: Set-up Help Grooming: Independent, Set-up Help Bathing-Upper Extremity: Independent, Set-up Help Bathing-Lower Extremity: Supervision, Verbal Cues, Set-up Help, Contact Guard Dressing-Upper Extremity: Independent, Set-up Help Dressing-Lower Extremity: Supervision, Verbal Cues, Set-up Help Homemaking: Verbal Cues, Set-up Help, Contact Guard, Minimal Assistance - Sitting Balance Static Sitting: Independent without upper extremity support Dynamic Sitting: Reaches across midline, Reaches out of base of support, Reaches within base of support Comment: seated, unsupported at edg eof bed - Transfers Wheelchair to Bed Transfers: Supervision, Verbal Cues, Set-up Help, Contact Guard Toilet Transfers: Supervision, Verbal Cues, Set-up Help, Contact Guard Comment: CG/CS for shower transfers and bed/w/c transfers - Wheelchair Management Level of Assistance: Modified Independent Distance (ft.): 150 - Upper Extremity Status Right Upper Extremity Comment: A/PROM WFLS excet for R shoulder from full rotator tear/pain Left Upper Extremity Comment: A/PROM WNLS - Pain Pain (assessed during therapy session): 2 Alleviating Techniques: Position Change, Relaxation Techniques, Exercise, Inactivity - Insight/Carryover Insight/Carryover: Good - Patient/Family Education Comment: -rehab/OT goals, plan of care. -energy conservation/work simplification for adls, transfers/mobility. -safety strategies, use of call saab. -RUE laptray to incresae R shoulder comfort. -eductaed on uses/ applications of commode, shower chair--further training needed - Assessment/Plan Assessment: Pt was oriented to benefits and purpose of participating in recreation therapy sessions throughout stay on unit. Pt presents with anxiety and decrease activity tolerance level. Pt will benefit from participating in recreation therapy sessions to improve arousal level, activity tolerance level, and attention to task. - Goals Timeframe: 1 week - Provider Therapist: Vesna Gomez OTR/L Speech Therapy - Plan Assessment: Pt was oriented to benefits and purpose of participating in recreation therapy sessions throughout stay on unit. Pt presents with anxiety and decrease activity tolerance level. Pt will benefit from participating in recreation therapy sessions to improve arousal level, activity tolerance level, and attention to task. Recreational Therapy - Participation Participation: Participates in Individual and/or Group Sessions - Attendance Attendance: 3-5 times per week - Activities Leisure Activities: Cards and Games - Socialization Level of Socialization: Initiates/interacts freely with care givers and peer - Diversional Time Diversional Time: plays games on tablet, has word searches in room - Assessment Assessment/Plan: Pt was oriented to benefits and purpose of participating in recreation therapy sessions throughout stay on unit. Pt presents with anxiety and decrease activity tolerance level. Pt will benefit from participating in recreation therapy sessions to improve arousal level, activity tolerance level, and attention to task. Problems Currently Limiting Participation: decrease leisure awareness level, decrease activity tolerance level, pain, weakness, decrease mood state, anxiety Goals and Time Frame: Pt will be encouraged to participate in 1:1 and group recreation therapy sessions 3-5x week to improve activity tolerance level, leisure awareness level, and improve mood state. - Provider Therapist: Amy Weiss, MARKETING ANALYTICS SPECIALIST #[id number] Nutrition - Current Diet Current Diet/ Supplement/ Feedings: Low consistent CHO heart healthy diet - Appetite Percent Meal Consumed: 75-100% - Comments Comments: Safety and fall prevention - Assessment/Goals/Time Frame Assessment/Goals/Time Frame: Pt at high nutritional risk. Goals: 1. Blood glucose will be between 70-180 mg/dL(not met, continue). 2. Pt to consume 75- 100% of meals. Follow-up due on 01/17/2018 - Provider Provider: Ambar Krueger RD Case Management - Psychosocial Assessment Support Systems: Resides with Father (daughter there intermittently) but pt with little support;. Pt states she is from spouse Lamont Pina [phone] who resides in [place]; She reports having a good relationship with him but states he is currently works and is caring for his mother and is unavailable for pt. Psychological Interventions/Needs: Pt is alert and oriented x4, mood appears depressed; Psychology aware. 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 Tentative d/c to be determined Plan: Home with skilled homecare and follow up with neuro Dr. العراقي and Dr. Ti Harry (ortho ) [phone] and previously scheduled for right shoulder arthroscopy; Assisted pt with completing medical examination form with Dr. العراقي for [employer] [place] (pt on state assistance) and required deferral for workforce program mineral engineer is Mr. Jesus Grossman [phone] - placed copy in chart and provided pt with copy including fax confirmation report 2. Pt receives insurance through her spouse - LAD 01/09/18 3. Provide continued emotional support. - Discharge Plan Discharge Plan: Home with services - Provider Provider: CHRISTIAN Stapleton, [employer] License Number: [id number] Rehabilitation Plan - Treatment Plan Treatment Plan: Physical Therapy, Occupational Therapy, Dietary, Patient/Family Education - Recommendation Recommendation: Physical Therapy, Occupational Therapy, Dietary, Patient/Family Education - Discharge Plan Discharge to: Home (16)
--- NOTE | 2018-01-13 15:42 | CP.PCM.PN ---
Subjective - Date & Time of Evaluation Date of Evaluation: 01/13/18 Time of Evaluation: 11:00 - Subjective Subjective: no acute complaints at present Objective - Vital Signs/Intake and Output Vital Signs (last 24 hours): Temp Pulse Resp BP Pulse Ox 97.6 F 91 H 20 127/75 100 01/13/18 08:50 01/13/18 08:50 01/13/18 08:50 01/13/18 08:50 01/13/18 08:50 - Medications Medications: Current Medications Atorvastatin Calcium (Lipitor) 20 mg PO HS [facility] Last Admin: 01/12/18 21:34 Dose: 20 mg Bisacodyl (Dulcolax) 10 mg DE DAILY PRN PRN Reason: Constipation Last Admin: 01/10/18 21:27 Dose: 10 mg Clopidogrel Bisulfate (Plavix) 75 mg PO DAILY [facility] Last Admin: 01/13/18 08:12 Dose: 75 mg Docusate Sodium (Colace) 100 mg PO BID [facility] Last Admin: 01/13/18 08:10 Dose: 100 mg Famotidine (Pepcid) 40 mg PO DAILY [facility] Last Admin: 01/13/18 08:12 Dose: 40 mg Insulin Detemir (Levemir) 13 units SC Q12 [facility] Last Admin: 01/13/18 08:09 Dose: 13 units Insulin Human Lispro (Humalog) 0 units SC ACHS [facility] PRN Reason: Protocol Last Admin: 01/13/18 12:06 Dose: 4 units Lisinopril (Zestril) 2.5 mg PO DAILY [facility] Last Admin: 01/13/18 08:12 Dose: 2.5 mg Meclizine HCl (Antivert) 25 mg PO TID PRN PRN Reason: Dizziness Last Admin: 01/07/18 08:59 Dose: 25 mg Ondansetron HCl (Zofran Odt) 4 mg PO Q8H PRN PRN Reason: Nausea/Vomiting Last Admin: 01/07/18 08:59 Dose: 4 mg Pregabalin (Lyrica) 100 mg PO BID [facility] Last Admin: 01/13/18 08:09 Dose: 100 mg Tramadol HCl (Ultram) 50 mg PO TID PRN PRN Reason: pain 1-10 - Labs Labs: 01/09/18 07:59 01/09/18 07:59 - Head Exam Head Exam: ATRAUMATIC, NORMAL INSPECTION, NORMOCEPHALIC - Eye Exam Eye Exam: EOMI, Normal appearance, PERRL Pupil Exam: NORMAL ACCOMODATION, PERRL - ENT Exam ENT Exam: Mucous Membranes Moist, Normal Exam - Neck Exam Neck Exam: Full ROM, Normal Inspection - Respiratory Exam Respiratory Exam: NORMAL BREATHING PATTERN - Cardiovascular Exam Cardiovascular Exam: REGULAR RHYTHM - GI/Abdominal Exam GI & Abdominal Exam: Soft, Normal Bowel Sounds - Rectal Exam Rectal Exam: NORMAL INSPECTION - Exam External exam: NORMAL EXTERNAL EXAM - Extremities Exam Extremities Exam: Full ROM, Normal Capillary Refill, Normal Inspection - Back Exam Back Exam: NORMAL INSPECTION - Neurological Exam Neurological Exam: Alert, Awake Neuro motor strength exam: Left Upper Extremity: 3, Right Upper Extremity: 3, Left Lower Extremity: 3, Right Lower Extremity: 3 - Psychiatric Exam Psychiatric exam: Normal Affect, Normal Mood - Skin Skin Exam: Dry, Intact Assessment and Plan (1) Ataxia Status: Acute (2) Bronchitis Status: Acute (3) CVA (cerebral vascular accident) Assessment & Plan: plan for physical, occupational rec therapy plan for Dc on 16 status post team , covering for Dr Shannon Status: Acute (4) Dizziness Status: Acute (5) Hyperglycemia Status: Acute (6) Lumbar radiculopathy Status: Acute
[2018-01-14] MEDS: Insulin Lispro (humaLOG) 100 Units/ml Inj SC SCH ×4 (08:01→21:51)
[2018-01-14] MEDS: Insulin Detemir 100 Units/ml Inj SC SCH ×2 (08:31→21:51)
--- NOTE | 2018-01-14 10:27 | CP.PCM.PN ---
Subjective - Date & Time of Evaluation Date of Evaluation: 01/14/18 Time of Evaluation: 10:26 - Subjective Subjective: doing well no complaints Objective - Vital Signs/Intake and Output Vital Signs (last 24 hours): Temp Pulse Resp BP Pulse Ox 98.2 F 88 20 123/73 99 01/14/18 08:45 01/14/18 08:45 01/14/18 08:45 01/14/18 08:45 01/14/18 08:45 Vitals Reviewed GEN: WDWN, alert, cooperative HEENT: NCAT, PERRL, EOMI HEART: RRR, +S1S2, NO MRG LUNG: CTAB, NO WRR ABD: soft, NT, ND, No HSM, No masses EXT: normal pedal pulses NEURO: awake, alert SKIN: warm, dry PSYCH: normal mood, normal affect - Medications Medications: Current Medications Atorvastatin Calcium (Lipitor) 20 mg PO [facility] Last Admin: 01/13/18 22:19 Dose: 20 mg Bisacodyl (Dulcolax) 10 mg SD DAILY PRN PRN Reason: Constipation Last Admin: 01/10/18 21:27 Dose: 10 mg Clopidogrel Bisulfate (Plavix) 75 mg PO DAILY [facility] Last Admin: 01/14/18 08:27 Dose: 75 mg Docusate Sodium (Colace) 100 mg PO BID [facility] Last Admin: 01/14/18 08:27 Dose: 100 mg Famotidine (Pepcid) 40 mg PO DAILY [facility] Last Admin: 01/14/18 08:27 Dose: 40 mg Insulin Detemir (Levemir) 13 units SC Q12 [facility] Last Admin: 01/14/18 08:31 Dose: 13 units Insulin Human Lispro (Humalog) 0 units SC ACHS [facility] PRN Reason: Protocol Last Admin: 01/14/18 08:01 Dose: 3 units Lisinopril (Zestril) 2.5 mg PO DAILY [facility] Last Admin: 01/14/18 08:27 Dose: 2.5 mg Meclizine HCl (Antivert) 25 mg PO TID PRN PRN Reason: Dizziness Last Admin: 01/07/18 08:59 Dose: 25 mg Ondansetron HCl (Zofran Odt) 4 mg PO Q8H PRN PRN Reason: Nausea/Vomiting Last Admin: 01/07/18 08:59 Dose: 4 mg Pregabalin (Lyrica) 100 mg PO BID [facility] Last Admin: 01/14/18 08:26 Dose: 100 mg Tramadol HCl (Ultram) 50 mg PO TID PRN PRN Reason: pain 1-10 - Labs Labs: 01/09/18 07:59 01/09/18 07:59 Assessment and Plan - Assessment and Plan (Free Text) Plan: 52 year old female with pmh of Type 2 diabetes mellitus for 7 years with history of diabetic neuropathy, history of TIAs, [place] palsy, who initially presented to [facility] with the complaint of dizziness/presyncope spells for the week prior to admission there. During her admission she was found to have chronic inflammatory demyelinating neuropathy, Faria-Johnston variant. She recieved IVIG infusions during her stay. In addition to this, she was noted to have decreased Hg of 9.8 and was worked up by Dr. Logan from GI. She had negative EGD with no bleed found. She is now being admitted to [facility] for further rehabilitation. Patient denies chest pain, shortness of breath , fevers, chills, diarrhea. All of the patient's and/or family's questions were answered at the bedside. 1) Chronic Inflammatory Demyelinating neuropathy, Faria-Johnston variant - Admit to acute rehab - PT/OT - Physiatry consultation with Dr. Shannon - Received 5 days of IVIG at [facility]. Plan for more infusions of IVIG to be arranged upon discharge from rehab, will be arranged by Dr. العراقي. - Pedro for neuropathic pain 2) Uncontrolled Type 2 DM - Levemir 15 units SC HS - Lispro sliding scale with Accucheks AC+HS - Low carbohydrate diet - Levemir 15 units SC HS - Lisinopril 2.5 mg po daily 3) History of TIA - Statin - Plavix 4) Anemia - No evidence of GI bleed after workup/EGD with Dr. Logan - Monitor CBC 5) Right shoulder cuff tear hx - Continue Ultram PRN - Will f/u with her orthopedic surgeon as outpatient - PT 6) DVT prophylaxis - Will hold off on anticoagulation due to anemia - SCDs
--- NOTE | 2018-01-14 13:57 | CP.PCM.PN ---
Subjective - Date & Time of Evaluation Date of Evaluation: 01/12/18 Time of Evaluation: 18:20 - Subjective Subjective: no acute complaints Objective - Vital Signs/Intake and Output Vital Signs (last 24 hours): Temp Pulse Resp BP Pulse Ox 98.2 F 88 20 123/73 99 01/14/18 08:45 01/14/18 08:45 01/14/18 08:45 01/14/18 08:45 01/14/18 08:45 - Medications Medications: Current Medications Atorvastatin Calcium (Lipitor) 20 mg PO HS [facility] Last Admin: 01/13/18 22:19 Dose: 20 mg Bisacodyl (Dulcolax) 10 mg SD DAILY PRN PRN Reason: Constipation Last Admin: 01/10/18 21:27 Dose: 10 mg Clopidogrel Bisulfate (Plavix) 75 mg PO DAILY [facility] Last Admin: 01/14/18 08:27 Dose: 75 mg Docusate Sodium (Colace) 100 mg PO BID [facility] Last Admin: 01/14/18 08:27 Dose: 100 mg Famotidine (Pepcid) 40 mg PO DAILY [facility] Last Admin: 01/14/18 08:27 Dose: 40 mg Insulin Detemir (Levemir) 13 units SC Q12 [facility] Last Admin: 01/14/18 08:31 Dose: 13 units Insulin Human Lispro (Humalog) 0 units SC ACHS [facility] PRN Reason: Protocol Last Admin: 01/14/18 12:00 Dose: 4 units Lisinopril (Zestril) 2.5 mg PO DAILY [facility] Last Admin: 01/14/18 08:27 Dose: 2.5 mg Meclizine HCl (Antivert) 25 mg PO TID PRN PRN Reason: Dizziness Last Admin: 01/07/18 08:59 Dose: 25 mg Ondansetron HCl (Zofran Odt) 4 mg PO Q8H PRN PRN Reason: Nausea/Vomiting Last Admin: 01/07/18 08:59 Dose: 4 mg Pregabalin (Lyrica) 100 mg PO BID [facility] Last Admin: 01/14/18 08:26 Dose: 100 mg Tramadol HCl (Ultram) 50 mg PO TID PRN PRN Reason: pain 1-10 - Labs Labs: 01/09/18 07:59 01/09/18 07:59 - Head Exam Head Exam: ATRAUMATIC, NORMAL INSPECTION, NORMOCEPHALIC - Eye Exam Eye Exam: EOMI, Normal appearance, PERRL Pupil Exam: NORMAL ACCOMODATION - ENT Exam ENT Exam: Mucous Membranes Moist, Normal Exam - Neck Exam Neck Exam: Full ROM, Normal Inspection - Respiratory Exam Respiratory Exam: Clear to Ausculation Bilateral, NORMAL BREATHING PATTERN - Cardiovascular Exam Cardiovascular Exam: REGULAR RHYTHM - GI/Abdominal Exam GI & Abdominal Exam: Soft, Normal Bowel Sounds - Rectal Exam Rectal Exam: NORMAL INSPECTION - Exam External exam: NORMAL EXTERNAL EXAM - Extremities Exam Extremities Exam: Full ROM, Normal Capillary Refill - Back Exam Back Exam: NORMAL INSPECTION - Neurological Exam Neurological Exam: Alert, Awake - Psychiatric Exam Psychiatric exam: Normal Affect, Normal Mood - Skin Skin Exam: Dry, Normal Color Assessment and Plan (1) Ataxia Status: Acute (2) Bronchitis Status: Acute (3) CVA (cerebral vascular accident) Assessment & Plan: plan for pt, ot rec therapt Dc planning covering for Dr jordan Status: Acute (4) Dizziness Status: Acute (5) Hyperglycemia Status: Acute (6) Lumbar radiculopathy Status: Acute
[2018-01-15] MEDS: Insulin Lispro (humaLOG) 100 Units/ml Inj SC SCH ×2 (07:48→12:41)
[2018-01-15] MEDS: Insulin Detemir 100 Units/ml Inj SC SCH (09:18)
[2018-01-15 09:19] VITALS: PULSE 94
[2018-01-15 09:29] VITALS: BP 134/68; TEMP 98.1; O2SAT 100
--- NOTE | 2018-01-15 12:03 | CP.PCM.DIS ---
Provider - Provider Date of Admission: 01/04/18 15:24 Attending physician: Thomas Apple MD Time Spent in preparation of Discharge (in minutes): 30 Hospital Course - Lab Results Lab Results: Most Recent Lab Values WBC 4.0 K/uL (4.8-10.8) L 01/09/18 07:59 RBC 4.13 Mil/uL (3.80-5.20) 01/09/18 07:59 Hgb 10.6 g/dL (12.0-16.0) L 01/09/18 07:59 Hct 32.3 % (34.0-47.0) L 01/09/18 07:59 MCV 78.2 fl (81.0-99.0) L 01/09/18 07:59 MCH 25.7 pg (27.0-31.0) L 01/09/18 07:59 MCHC 32.8 g/dL (33.0-37.0) L 01/09/18 07:59 RDW 12.3 % (11.5-14.5) 01/09/18 07:59 Plt Count 187 K/uL (130-400) 01/09/18 07:59 Sodium 140 mmol/l (132-148) 01/09/18 07:59 Potassium 4.1 MMOL/L (3.6-5.0) 01/09/18 07:59 Chloride 100 mmol/L (98-107) 01/09/18 07:59 Carbon Dioxide 30 mmol/L (22-30) 01/09/18 07:59 Anion Gap 14 (10-20) 01/09/18 07:59 BUN 17 mg/dl (7-17) 01/09/18 07:59 Creatinine 0.5 mg/dl (0.7-1.2) L 01/09/18 07:59 Est GFR ( Amer) > 60 01/09/18 07:59 Est GFR (Non-Af Amer) > 60 01/09/18 07:59 POC Glucose (mg/dL) 250 mg/dL (65-110) H 01/15/18 11:52 Random Glucose 201 mg/dL (65-105) H 01/09/18 07:59 Calcium 9.2 mg/dL (8.4-10.2) 01/09/18 07:59 - Hospital Course Hospital Course: 52 year old female with pmh of Type 2 diabetes mellitus for 7 years with history of diabetic neuropathy, history of TIAs, [place] palsy, who initially presented to [facility] with the complaint of dizziness/presyncope spells for the week prior to admission there. During her admission she was found to have chronic inflammatory demyelinating neuropathy, Faria-Johnston variant. She recieved IVIG infusions during her stay. In addition to this, she was noted to have decreased Hg of 9.8 and was worked up by Dr. oLgan from GI. She had negative EGD with no bleed found. She is now being admitted to [facility] for further rehabilitation. Patient denies chest pain, shortness of breath , fevers, chills, diarrhea. All of the patient's and/or family's questions were answered at the bedside. Pt did well in rehab, stable for discharge. Follow up PCP and neuro in one week. 1) Chronic Inflammatory Demyelinating neuropathy, Faria-Johnston variant - Admit to acute rehab - PT/OT - Physiatry consultation with Dr. Shannon - Received 5 days of IVIG at [facility]. Plan for more infusions of IVIG to be arranged upon discharge from rehab, will be arranged by Dr. العراقي. - Pedro for neuropathic pain 2) Uncontrolled Type 2 DM - Levemir 15 units SC HS - Lispro sliding scale with Accucheks AC+HS - Low carbohydrate diet - Levemir 15 units SC HS - Lisinopril 2.5 mg po daily 3) History of TIA - Statin - Plavix 4) Anemia - No evidence of GI bleed after workup/EGD with Dr. Logan - Monitor CBC 5) Right shoulder cuff tear hx - Continue Ultram PRN - Will f/u with her orthopedic surgeon as outpatient - PT 6) DVT prophylaxis - Will hold off on anticoagulation due to anemia - SCDs Discharge Exam - Head Exam Additional comments: Vitals Reviewed GEN: WDWN, alert, cooperative HEENT: NCAT, PERRL, EOMI HEART: RRR, +S1S2, NO MRG LUNG: CTAB, NO WRR ABD: soft, NT, ND, No HSM, No masses EXT: normal pedal pulses NEURO: awake, alert SKIN: warm, dry PSYCH: normal mood, normal affect Discharge Plan - Discharge Medications Prescriptions: Atorvastatin [Lipitor] 20 mg PO HS #30 tab Clopidogrel [Plavix] 75 mg PO DAILY #30 tab Docusate [Colace] 100 mg PO BID PRN #60 cap PRN Reason: Constipation Lisinopril [Zestril] 2.5 mg PO DAILY #30 tab Meclizine [Meclizine*] 25 mg PO TID PRN #90 tab PRN Reason: Dizziness Pregabalin [Lyrica] 100 mg PO BID #60 cap traMADol [Ultram] 50 mg PO TID PRN #90 tab PRN Reason: Pain 1-10. - Follow Up Plan Condition: GOOD Disposition: HOME/ ROUTINE Instructions: Diabetic Neuropathy, Diabetes Type 2 (DC)
== END 2018-01-15 14:00 | disposition home health service (06) | DRG 74 ==
PROC: F07Z9FZ Gait Training/Functional Ambulation Treatment using Assistive, Adaptive, Supportive or Protective Equipment (ICD-10-PCS; principal; 2018-01-04)
PROC: F08Z4FZ Home Management Treatment using Assistive, Adaptive, Supportive or Protective Equipment (ICD-10-PCS; 2018-01-04)
PROC: F07M6FZ Therapeutic Exercise Treatment of Musculoskeletal System - Whole Body using Assistive, Adaptive, Supportive or Protective Equipment (ICD-10-PCS; 2018-01-05)
DX: G61.81 Chronic inflammatory demyelinating polyneuritis (principal); G37.9 Demyelinating disease of central nervous system, unspecified; J20.9 Acute bronchitis, unspecified; E11.65 Type 2 diabetes mellitus with hyperglycemia; M54.16 Radiculopathy, lumbar region; E11.40 Type 2 diabetes mellitus with diabetic neuropathy, unspecified; M75.101 Unspecified rotator cuff tear or rupture of right shoulder, not specified as traumatic; D64.9 Anemia, unspecified; R27.0 Ataxia, unspecified; Z59.8 Other problems related to housing and economic circumstances; Z86.73 Personal history of transient ischemic attack (TIA), and cerebral infarction without residual deficits; Z79.4 Long term (current) use of insulin; Z87.442 Personal history of urinary calculi